=== PATIENT | male | born 1980 | race Caucasian/White ===

== ENCOUNTER 2016-09-26 13:58 | Emergency (ER) | payer OTHER ==
[~2016-09-26] VITALS: Ht 182.9 cm; Wt 77.1 kg
[2016-09-26 14:26] VITALS: BP 142/79
--- NOTE | 2016-09-26 15:03 | PHYS DOC ---
Past Medical History Past Medical History: No Pertinent History Past Surgical History: No Surgical History Alcohol Use: None Drug Use: None Adult General Chief Complaint Chief Complaint: LOWER BACK PAIN OR INJURY HPI HPI Patient is a 35 year old male who presents with back injury. 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 He states he felt a pull in his right lower back & had sudden sharp pain. Pain is persistent today. Able to ambulate although it does increased discomfort. Denies numbness or weakness in lower extremities, denies bowel or bladder incontinence/retention, saddle anesthesia. Reports history of minor back injury, denies back surgeries. Had phone consult with Worker's [employer]. physician, received prescription for Flexeril yesterday which has not been helping his pain. He is from [place]. Review of Systems Review of Systems Constitutional: Denies fever or chills HENT: Denies nasal congestion or sore throat Respiratory: Denies cough or shortness of breath Cardiovascular: Denies chest pain GI: Denies abdominal pain, nausea, vomiting Musculoskeletal: Reports back pain Integument: Denies rash Neurologic: Denies headache Current Medications Current Medications Current Medications Medications (Trade) Dose Ordered Sig/Jean-Pierre Start Time Stop Time Status Last Admin Dose Admin Ibuprofen (Motrin) 600 mg 1X ONCE 09/26/16 15:30 09/26/16 15:30 DC Allergies Allergies Allergies Coded Allergies Type Severity Reaction Last Updated Verified No Known Drug Allergies 09/26/16 No Physical Exam Physical Exam Constitutional: Well developed, well nourished, no acute distress, non-toxic appearance. HENT: Normocephalic, atraumatic, bilateral external ears normal, oropharynx moist, nose normal. Eyes: conjunctiva normal, no discharge. Cardiovascular: RRR, no murmurs, no edema. Lungs & Thorax: LCTAB, no wheezing, no respiratory distress. Abdomen: soft, nontender, nondistended. Skin: Warm, dry, no erythema, no rash. 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 Psychologic: Affect normal, judgement normal, mood normal. Current Patient Data Vital Signs Vital Signs Date Time Temp Pulse Resp B/P (MAP) Pulse Ox O2 Delivery O2 Flow Rate FiO2 09/26/16 14:26 98.0 83 19 142/79 (100) 99 Room Air 98.0 EKG EKG [] Radiology/Procedures Radiology/Procedures [] Course & Med Decision Making Course & Med Decision Making Pertinent Labs and Imaging studies reviewed. (See chart for details) Patient presents with lower back pain. No spinal tenderness, no symptoms of cauda equina syndrome. Consistent with lumbar strain. No need for imaging at this time. Patient would like to try taking ibuprofen on scheduled basis before any additional pain medication. Encouraged him to take 600 mg 3 times a day, continue Flexeril when necessary. Also try ice or heat application. Follow-up with a primary care physician if symptoms persist in one to 2 weeks. Return to the emergency department for focal neurologic deficit, symptoms of cauda equina syndrome, any otherwise worsening condition. Discharged home in stable condition. [] Dragon Disclaimer Dragon Disclaimer This electronic medical record was generated, in whole or in part, using a voice recognition dictation system. Departure Departure Impression: Primary Impression: Lumbar strain Disposition: 01 HOME, SELF-CARE Condition: STABLE Patient Instructions: Back Injury Prevention, [id number], Low Back Strain with Rehab-SportsMed Additional Instructions: You were seen in the emergency department today for lower back pain. There is no tenderness over the spine so very unlikely that this is a fracture or injury to the bone. Most likely this is muscle. Please avoid excessively heavy lifting but try to stay active to promote recovery. Use ice or heating pad. Take ibuprofen 600 mg every 8 hours. Continue using the cyclobenzaprine for muscle spasm. Follow-up with a primary care physician if not improving in one to 2 weeks. You may need imaging such as MRI at that time. Come back for numbness or weakness in legs, loss of control of bowels or bladder, numbness in your groin, any otherwise worsening condition. JUAN DAVID JAMES MD September 26, 2016 15:03
[2016-09-26] MEDS ORDERED: IBUPROFEN 600 MG TABLET. PO ONE (15:30)
== END 2016-09-26 15:20 | disposition home or self-care (01) ==
LOC: ER 15:16
DX: S39.012A Strain of muscle, fascia and tendon of lower back, initial encounter (principal); X50.9XXA Other and unspecified overexertion or strenuous movements or postures, initial encounter; Y93.89 Activity, other specified; Y99.8 Other external cause status; Y92.89 Other specified places as the place of occurrence of the external cause
CPT/HCPCS: 99281